=== PATIENT | female | born 1965 | race American Indian/Alaskan Native ===

== ENCOUNTER 2022-01-20 07:43 | Emergency (ER) | payer SELFPAY ==
[2022-01-20] MEDS ORDERED: SODIUM CHLORIDE 0.9% 1000 ML 1,000 ML IV ONE (08:08)
[2022-01-20] MEDS ORDERED: MORPHINE 4 MG/1 ML INJ IV NR (08:08)
[2022-01-20] MEDS ORDERED: ONDANSETRON 4 MG/2 ML INJ IV ONE (08:08)
[2022-01-20] MEDS ORDERED: PANTOPRAZOLE 40 MG INJ IV ONE (08:08)
--- NOTE | 2022-01-20 08:13 | Emergency Department Report ---
ED Abdominal Pain HPI - General Chief Complaint: Abdominal Pain Stated Complaint: ABD PAIN Time Seen by Provider: 01/20/22 08:04 Source: patient, EMS Mode of arrival: Stretcher Limitations: No Limitations - History of Present Illness Initial Comments: Patient is 56 years old female with history of hypertension. Patient presented to the ER complaining of epigastric abdominal pain that radiated to her back for the last 3 days getting worse today. Patient stated that she is on a special diet she is taking only vegetables and fruits however on the last few days she started taking some cheese and ate some quesadilla and since then she started having this pain. She also added that she drink some liquor the day before. She denied any fever or chills. No chest pain or shortness of breath. Patient also denied any diarrhea. MD Complaint: abdominal pain -: days(s) (3) Location: epigastric Migration to: no migration Severity scale (0 -10): 10 Associated Symptoms: nausea, vomiting - Related Data Allergies Allergy/AdvReac Type Severity Reaction Status Date / Time lisinopril Allergy Angioedema Verified 01/20/22 10:13 losartan Allergy Bleeding Verified 01/20/22 10:13 ED Review of Systems ROS: Stated complaint: ABD PAIN Other details as noted in HPI Comment: All other systems reviewed and negative Constitutional: denies: chills, fever Respiratory: denies: cough, shortness of breath, SOB with exertion Gastrointestinal: abdominal pain, nausea, vomiting. denies: diarrhea, constipation, melena, hematochezia Musculoskeletal: denies: back pain Neurological: denies: headache, weakness, numbness, paresthesias, confusion, abnormal gait ED Physical Exam - General Limitations: No Limitations General appearance: alert, in no apparent distress - Head Head exam: Present: atraumatic, normocephalic, normal inspection - Eye Eye exam: Present: normal appearance - ENT ENT exam: Present: normal exam, normal orophraynx, mucous membranes moist - Neck Neck exam: Present: normal inspection, full ROM. Absent: tenderness, meningismus - Respiratory Respiratory exam: Present: normal lung sounds bilaterally - Cardiovascular Cardiovascular Exam: Present: regular rate, normal rhythm, normal heart sounds - GI/Abdominal GI/Abdominal exam: Present: soft, normal bowel sounds. Absent: distended, tenderness, guarding, rebound, rigid - Extremities Exam Extremities exam: Present: normal inspection, full ROM, normal capillary refill. Absent: tenderness - Back Exam Back exam: Present: normal inspection, full ROM. Absent: CVA tenderness (R), CVA tenderness (L) - Neurological Exam Neurological exam: Present: alert, oriented X3, CN II-XII intact, normal gait, reflexes normal. Absent: motor sensory deficit - Psychiatric Psychiatric exam: Present: normal mood - Skin Skin exam: Present: warm, intact, normal color ED Course Vital Signs 01/20/22 07:49 Temperature 98.2 F Pulse Rate 60 Respiratory 16 Rate Blood Pressure 139/79 [Right] O2 Sat by Pulse 99 Oximetry ED Medical Decision Making - Lab Data Result diagrams: 01/20/22 08:32 01/20/22 08:32 - Radiology Data Radiology results: report reviewed - Medical Decision Making Patient is 56 years old female with history of hypertension. Patient presented to the ER complaining of epigastric abdominal pain that radiated to her back for the last 3 days getting worse today. Patient stated that she is on a special diet she is taking only vegetables and fruits however on the last few days she started taking some cheese and ate some quesadilla and since then she started having this pain. She also added that she drink some liquor the day before. Sh e denied any fever or chills. No chest pain or shortness of breath. Patient also denied any diarrhea. Patient received morphine, Zofran and Protonix. Patient stated that she is feeling much better. Labs reviewed and showed a lipase of [id number]. CT abdomen and pelvis is negative for acute finding. Patient stated that her abdominal pain is completely resolved. Patient advised to follow-up with her primary care physician in the next 2 to 3 days and to return to the ER if she develop any new symptoms. Critical care attestation.: If time is entered above; I have spent that time in minutes in the direct care of this critically ill patient, excluding procedure time. ED Disposition Clinical Impression: Acute abdominal pain, Acute pancreatitis Disposition: HOME / SELF CARE / HOMELESS Is pt being admited?: No Condition: Stable Instructions: Abdominal Pain (ED), Acute Pancreatitis, Abdominal Pain, Adult, [id number] Referrals: PRIMARY CARE, [Referring] - 3-5 Days
[2022-01-20 09:08] LABS: Basophils % (Auto) 0.3 % (0.0-1.8); Eosinophils # (Auto) 0.2 K/mm3 (0.0-0.4); Eosinophils % (Auto) 1.1 % (0.0-4.3); Hematocrit 37.1 % (30.3-42.9); Lymphocytes # (Auto) 2.1 K/mm3 (1.2-5.4); Lymphocytes % (Auto) 14.1 % (13.4-35.0); Mean Corpuscular HGB Conc 32 % (30-34); Mean Corpuscular Volume 85 fl (79-97); Monocytes # (Auto) 0.8 K/mm3 (0.0-0.8); Monocytes % (Auto) 5.3 % (0.0-7.3); Platelet Count 408 K/mm3 (140-440); Red Blood Count 4.35 M/mm3 (3.65-5.03); Red Cell Distribution Width 14.4 % (13.2-15.2)
[2022-01-20 09:49] LABS: Alanine Aminotransferase 39 units/L (7-56); Blood Urea Nitrogen 15 mg/dL (7-17); Calcium 9.3 mg/dL (8.4-10.2); Hemolysis Index 0
[2022-01-20 09:51] LABS: BUN/Creatinine Ratio 21; Bilirubin,Direct < 0.2 mg/dL (0-0.2)
--- NOTE | 2022-01-20 11:28 | Cat Scan Report ---
CT ABDOMEN AND PELVIS WITH CONTRAST INDICATION: abdominal pain. TECHNIQUE: Axial CT images were obtained through the abdomen and pelvis after 100 cc Omni [address] scans at this location are performed using CT dose reduction for ALARA by means of automated expos ure control. COMPARISON: None available. FINDINGS: LOWER CHEST: No significant abnormality. LIVER: No significant abnormality. GALLBLADDER: No significant abnormality. BILE DUCTS: No significant abnormality. PANCREAS: No significant abnormality. SPLEEN: No significant abnormality. ADRENALS: No significant abnormality. RIGHT KIDNEY and URETER: No significant abnormality. LEFT KIDNEY and URETER: No significant abnormality. STOMACH and SMALL BOWEL: No significant abnormality. COLON: No significant abnormality. APPENDIX: No significant abnormality. PERITONEUM: No free fluid. No free air. No fluid collection. LYMPH NODES: No significant adenopathy. AORTA and ARTERIES: No significant abnormality. IVC and VEINS: No significant abnormality. URINARY BLADDER: No significant abnormality. REPRODUCTIVE ORGANS: No significant abnormality. ADDITIONAL FINDINGS: None. SKELETAL SYSTEM: Mild degenerative changes lower lumbar spine IMPRESSION: 1. No significant abnormality. Signer Name: Kush Wells MD Signed: 01/20/2022 11:23 AM Workstation Name: [id number]
[2022-01-20 15:10] VITALS: BP 141/65
== END 2022-01-20 15:10 | disposition home or self-care (01) ==
LOC: ED 07:43
DX: K85.90 Acute pancreatitis without necrosis or infection, unspecified (principal); R10.13 Epigastric pain
CPT/HCPCS: 36415; 74177; 80048; 80076; 83690; 85025; 96361; 96374; 96375; 99284; C9113; J2270; J2405; J7030; Q9967